=== PATIENT | male | born 1930 | race Caucasian/White ===

== ENCOUNTER → 2017-06-09 | Outpatient (CLI) | payer MEDICARE, OTHER ==
[~2017-06-09] MED LIST: AMBIEN 5MG TABLE5 MG PO; ASPIRIN 32325 MG/TAB PO; ASPIRIN E.C. 8181 MG PO; CELEBREX 200MG200 MG PO; CELEXA 20MG20 MG/TAB PO; CIALIS20 MG PO; CRESTOR20 MG PO; DEPO-TESTOS100 MG/ML IM; DOXYCYCLINE 10100 MG PO; LASIX 20MG TABL20 MG PO; MULTIPLE VITAMI1 CAP PO; NEURONTIN300 MG/CAP PO; NORCO 325 MG-7.1 TAB PO; PROTONIX 40MG T40 MG PO; TOPROL XL100 MG PO; ULTRAM 50MG TAB50 MG PO; VOLTAREN 75 DR75 MG PO
== END ==
LOC: COL.VAS 10:25
DX: I83.811 Varicose veins of right lower extremity with pain (principal); I87.2 Venous insufficiency (chronic) (peripheral)

== ENCOUNTER 2017-06-26 07:28 | Outpatient (CLI) | payer MEDICARE, OTHER ==
[~2017-06-26] VITALS: Ht 182.9 cm; Wt 77.3 kg
[2017-06-26] VITALS (10 sets, daily range): BP systolic 119–150; BP diastolic 62–86; PULSE 47–75; TEMP 97.6–98.2
[~2017-06-26 07:28] MED LIST changes: -DOXYCYCLINE 10100 MG PO
[2017-06-26] MEDS ORDERED: DOXYCYCLINE 10100 MG PO (12:35)
== END 2017-06-26 15:40 | disposition home or self-care (01) ==
LOC: COL.VAS 07:28
DX: I87.2 Venous insufficiency (chronic) (peripheral) (principal)
CPT/HCPCS: C1894; J0171; J1200; J2250; J3010; J3370; J7050; J7120

== ENCOUNTER 2017-06-27 16:45 | Outpatient (CLI) | payer MEDICARE, OTHER ==
[~2017-06-27 16:45] MED LIST changes: +DOXYCYCLINE 10100 MG PO
[2017-06-27 17:31] VITALS: BP 134/82; PULSE 75; TEMP 97.9
== END 2017-06-27 18:00 | disposition home or self-care (01) ==
LOC: EUO 16:45
DX: I97.618 Postprocedural hemorrhage of a circulatory system organ or structure following other circulatory system procedure (principal)

== ENCOUNTER → 2017-07-03 | Outpatient (CLI) | payer MEDICARE, OTHER | LOC: COL.VAS 09:22 | DX: Z98.890 Other specified postprocedural states (principal) ==